=== PATIENT | female | born 1995 | race Caucasian/White ===

== ENCOUNTER → 2017-04-16 | Outpatient (CLI) | payer BC ==
[~2017-04-16] MED LIST: AMOX400S3 PO; AZIT250T PO; BIOT1CAP8 PO; BSP/5 PO; ONDA4TAB10 SL; ONDA4TAB46 PO; PRED20TA PO; PROM1SUP19 PR; PYRI100T4 PO; VITB2100 PO; VNTHFA/IN INH
[2017-04-16 18:41] LABS: URINE APPEARANCE CLEAR (CLEAR); URINE BILIRUBIN NEG (NEG); URINE COLOR YELLOW; URINE NITRITE NEG (NEG); URINE PH 7.5 (4.5-7.5); URINE SPECIFIC GRAVITY 1.014 (1.000-1.030); UROBILINOGEN NEG (NEG)
[2017-04-16 18:58] LABS: MANUAL MICROSCOPIC REQUIRED? NO; REVIEW REQ? NO
[2017-04-19 03:15] LABS: CHLAMYDIA TRACH RNA*** NOT DETECTED (NOT DETECTED); GC (NEIS GONORRHOEAE)RNA** NOT DETECTED (NOT DETECTED)
== END | disposition home or self-care (01) ==
LOC: C.LABSPEC 17:45
PROVIDERS: ATTEND Obstetrics & Gynecology
DX: Z34.01 Encounter for supervision of normal first pregnancy, first trimester (principal)

== ENCOUNTER → 2017-04-17 | Outpatient (CLI) | payer BC ==
[2017-04-17 14:08] LABS: HEMATOCRIT 38.8 % (37-47); MEAN CELL VOLUME 88.8 fL (80-100); MEAN CORPUSCULAR HEMOGLOBIN 30.2 pg (25-34); MEAN PLATELET VOLUME 10.8 fL (7.4-10.4); PLATELET COUNT 191 K/uL (130-400); RED BLOOD COUNT 4.37 M/uL (4.2-5.4); WHITE BLOOD COUNT 9.36 K/uL (4.8-10.8)
[2017-04-17 14:11] LABS: BASO % 0.2 %; BASO ABS # 0.02 K/uL (0-0.2); COMPLETE YES; EOS % 0.9 %; IG% 0.2 %; LYMPH % 19.4 %; LYMPH ABS # 1.82 K/uL (1.2-3.4); MONO % 7.1 %; NEUT % 72.2 %; PLT ESTIMATE NORMAL; TOXIC GRANULATION 1+
== END | disposition home or self-care (01) ==
LOC: C.LAB1850 11:37
PROVIDERS: ATTEND Obstetrics & Gynecology
DX: Z34.01 Encounter for supervision of normal first pregnancy, first trimester (principal)

== ENCOUNTER 2017-05-19 12:21 | Emergency (ER) | payer BC ==
[~2017-05-19] VITALS: Ht 160 cm; Wt 55.8 kg
[~2017-05-19 12:21] MED LIST changes: -BSP/5 PO; -ONDA4TAB10 SL; -ONDA4TAB46 PO; -PROM1SUP19 PR; -PYRI100T4 PO; -VNTHFA/IN INH
[2017-05-19 12:33] VITALS: TEMP 36.8; Ht 160 cm; Wt 55.8 kg
[2017-05-19] MEDS ORDERED: PYRI100T4 PO (12:53)
[2017-05-19] MEDS ORDERED: DiphenhydrAMINE HCL 50 MG/ML VIAL IV STA (13:05)
[2017-05-19] MEDS ORDERED: SODIUM CHLORIDE 0.9% 1000ML 1,000 ML IV ONE (13:15)
[2017-05-19 13:48] LABS: BASO % 0.2 %; BASO ABS # 0.02 K/uL (0-0.2); COMPLETE YES; EOS % 0.5 %; HEMATOCRIT 38.9 % (37-47); IG% 0.2 %; LYMPH % 17.6 %; LYMPH ABS # 1.94 K/uL (1.2-3.4); MEAN CELL VOLUME 89.4 fL (80-100); MEAN CORPUSCULAR HEMOGLOBIN 31.3 pg (25-34); MEAN PLATELET VOLUME 10.1 fL (7.4-10.4); MONO % 4.5 %; PLATELET COUNT 198 K/uL (130-400); RED BLOOD COUNT 4.35 M/uL (4.2-5.4); WHITE BLOOD COUNT 11.04 K/uL (4.8-10.8)
[2017-05-19 13:51] LABS: URINE APPEARANCE TURBID (CLEAR); URINE BILIRUBIN NEG (NEG); URINE COLOR YELLOW; URINE EPITHELIAL CELL AUTO >30 /lpf (0-5); URINE NITRITE NEG (NEG); URINE SPECIFIC GRAVITY 1.021 (1.000-1.030); UROBILINOGEN NEG (NEG)
[2017-05-19 13:55] LABS: MANUAL MICROSCOPIC REQUIRED? NO; REVIEW REQ? NO
[2017-05-19 14:07] LABS: ALT/SGPT 18 U/L (12-78); BLOOD UREA NITROGEN 5 mg/dl (7-18); BUN/CREATININE RATIO 10.4 (10-20); CALCIUM 9.2 mg/dl (8.5-10.1); CARBON DIOXIDE 25 mmol/L (21-32); CHLORIDE 104 mmol/L (98-107); CREATININE 0.51 mg/dl (0.60-1.20); GLUCOSE 72 mg/dl (70-99); POTASSIUM 3.4 mmol/L (3.5-5.1); SODIUM 136 mmol/L (136-145)
[2017-05-19 14:09] LABS: ALKALINE PHOSPHATASE 57 U/L (45-117); AST/SGOT 8 U/L (15-37)
[2017-05-19] MEDS ORDERED: ACETAMINOPHEN IV 650 MG in EMPTY BAG 0 ML IV ONE (14:30)
[2017-05-19] MEDS ORDERED: ONDA4TAB46 PO (15:51)
[2017-05-19 16:15] VITALS: BP 104/51; PULSE 74; O2SAT 100
--- NOTE | 2017-05-20 15:43 | EMERGENCY ROOM VISIT NOTE ---
ED Visit Note First contact with patient: 12:47 Chief Complaint: and having worsening nausea and vomiting. History of Present Illness: Ms. Biggs is a 22-year-old white female who ambulates into the ED accompanied by her mother complaining of nausea and vomiting. Historically she is para 1 0 with an EDC of November 28. She has been having first trimester nausea and vomiting for multiple weeks. She is seen her HAND CEMENTER twice for this condition and she has been placed on vitamin B6 and Unisom and has had no relief of her symptoms. Patient reports her nausea is constant and she has had 6-7 episodes of vomiting per day. This is worsened when she attempts the ED or drink anything. She has not found any relief from her medications. Associated with her nausea and vomiting she reports that she has a global headache. This headache is intermittent. She describes her pain as a throbbing sensation with prominence in the bifrontal area. She does report she has most of her relief when she is not vomiting and it is worsened when she vomits. She has not taken any medications for this discomfort prior to arrival at the hospital. Also she has dizziness when she is vomiting. She denies fevers, chills, sweats, skin eruptions, skin color changes, abnormal neurological symptoms, upper respiratory tract symptoms, sinus congestion, sore throats, neck pain/stiffness, shortness of breath, cough, wheezing, abdominal pain, diarrhea, constipation, bloody vomitus, bloody stools, urinary symptoms, hematuria, vaginal bleeding/discharge. Review of Systems: As noted above in history of present illness. All body systems were reviewed and found to be negative as noted above. Past Medical History: As previously noted, asthma, bronchitis, pneumonia, kidney stones, frequent urinary tract infections. Current Medications: Vitamin B6 and Unisom. Allergies to Medications: Codeine. Social History: Patient is currently employed; she lives with her mother and feels safe in her home environment; she admits to tobacco use and denies alcohol use. Physical Examination: Vital Signs: Test 05/19/17 13:20 05/19/17 13:30 Range/Units White Blood Count 11.04 4.8-10.8 K/uL Red Blood Count 4.35 4.2-5.4 M/uL Hemoglobin 13.6 12.0-16.0 g/dL Hematocrit 38.9 37-47 % Mean Corpuscular Volume 89.4 80-100 fL Mean Corpuscular Hemoglobin 31.3 25-34 pg Mean Corpuscular Hemoglobin Concent 35.0 32-36 g/dl Platelet Count 198 130-400 K/uL Mean Platelet Volume 10.1 7.4-10.4 fL Neutrophils (%) (Auto) 77.0 % Lymphocytes (%) (Auto) 17.6 % Monocytes (%) (Auto) 4.5 % Eosinophils (%) (Auto) 0.5 % Basophils (%) (Auto) 0.2 % Neutrophils # (Auto) 8.51 1.4-6.5 K/uL Lymphocytes # (Auto) 1.94 1.2-3.4 K/uL Monocytes # (Auto) 0.50 0.11-0.59 K/uL Eosinophils # (Auto) 0.05 0-0.5 K/uL Basophils # (Auto) 0.02 0-0.2 K/uL RDW Standard Deviation 40.9 36.4-46.3 fL RDW Coefficient of Variation 12.6 11.5-14.5 % Immature Granulocyte % (Auto) 0.2 % Immature Granulocyte # (Auto) 0.02 0.00-0.02 K/uL Sodium Level 136 136-145 mmol/L Potassium Level 3.4 3.5-5.1 mmol/L Chloride Level 104 98-107 mmol/L Carbon Dioxide Level 25 21-32 mmol/L Anion Gap 7.0 3-11 mmol/L Blood Urea Nitrogen 5 7-18 mg/dl Creatinine 0.51 0.60-1.20 mg/dl Est Creatinine Clear Calc Drug Dose 145.5 ml/min Estimated GFR () > 150.0 Estimated GFR (Non- 138.4 BUN/Creatinine Ratio 10.4 10-20 Random Glucose 72 70-99 mg/dl Calcium Level 9.2 8.5-10.1 mg/dl Total Bilirubin 0.3 0.2-1 mg/dl Direct Bilirubin 0.1 0-0.2 mg/dl Aspartate Amino Transf (AST/SGOT) 8 15-37 U/L Alanine Aminotransferase (ALT/SGPT) 18 12-78 U/L Alkaline Phosphatase 57 45-117 U/L Total Protein 7.7 6.4-8.2 gm/dl Albumin 3.9 3.4-5.0 gm/dl Lipase 98 73-393 U/L Human Chorionic Gonadotropin, Quant 03955 mIU/mL Urine Color YELLOW Urine Appearance TURBID CLEAR Urine pH 8.0 4.5-7.5 Urine Specific [place] 1.021 1.000-1.030 Urine Protein NEG NEG Urine Glucose (UA) NEG NEG Urine Ketones 1+ NEG Urine Occult Blood NEG NEG Urine Nitrite NEG NEG Urine Bilirubin NEG NEG Urine Urobilinogen NEG NEG Urine Leukocyte Esterase NEG NEG Urine WBC (Auto) 1-5 0-5 /hpf Urine RBC (Auto) 0-4 0-4 /hpf Urine Hyaline Casts (Auto) 1-5 0-5 /lpf Urine Epithelial Cells (Auto) >30 0-5 /lpf Urine Bacteria (Auto) NEG NEG GENERAL: 22-year-old female in mild to moderate distress due to symptoms, nontoxic-appearing, afebrile and hemodynamically stable. NEUROLOGICAL: Awake, alert and oriented to person, place and time. Answering questions appropriately and following commands. Normal gait. Good hand eye coordination. SKIN: Warm, dry and pink. No soft tissue eruptions or trauma noted. HEENT: Atraumatic and normocephalic. PERRLA. EOMI without nystagmus. External ears are nontender. Tympanic membranes appear normal without erythema or bulging. No drainage from naris. Oral cavity moist and pink. Airway patent. Pharynx is nonerythematous or edematous. Speech normal. No lymphadenopathy. Trachea midline. No jugular venous distention. BACK: No tenderness over the bony spine. No CVA tenderness. THORAX: Lungs sounds are clear to auscultation and equal bilaterally with symmetrical chest wall. No wheezing, rales or rhonchi. No crepitus, tenderness , subcutaneous air or deformities noted. HEART: Tachycardic rate and rhythm. No gallops, rubs or murmurs are appreciated. ABDOMEN: Soft and nontender. Positive bowel sounds in all quadrants. No guarding, rigidity or organomegaly. EXTREMITIES: Moves all extremities well on command and with purpose. All distal neurovascular statuses are intact and equal bilaterally. ED Course: Patient is assessed as noted above. Patient medication list was reviewed. Patient was hydrated with normal saline and given 25 mg of Benadryl IV for her nausea and 650 mg of acetaminophen IV for her headache. Patient was reassessed multiple times during her stay in the emergency department. Patient's case was reviewed with Dr. Arrieta; we agreed on diagnostic approach, treatment, disposition and plan. Patient's case was consulted with Dr. Delgado, HAND CEMENTER; she recommended ED discharge, office follow-up and had the patient chews from vaginal/rectal Phenergan or ODT Zofran for her symptoms; she accepted Zofran. Patient and mother were educated about today's findings and instructed on her treatment plan; she verbalizes understanding and agreement with this plan. Clinical Impression: Nausea and vomiting during . Disposition: Patient discharged home in stable condition accompanied by her mother; prior to departure she subjectively reported she was feeling better. I did try a her on water and she was able to take sips without return of nausea vomiting but did report the fluids did cause her some abdominal cramping in the upper abdomen. Plan: Patient was encouraged to use 6 mg of Zofran every 4-6 hours as needed for nausea/vomiting and she was encouraged at least over the next 2 days to take it before mealtime. Patient was encouraged to take 3-4 sips of water every hour until she can tolerate additional fluids and after tolerating additional fluids she did try a bland/clear diet. Patient is encouraged use 650 mg of liquid Tylenol every 6 hours as needed for pain. Patient was encouraged to call her HAND CEMENTER office and request follow-up care and treatment. Patient was encouraged return ED for worsening nausea/vomiting, bloody vomitus, fevers or any new/concerning symptoms.
== END 2017-05-19 16:16 | disposition home or self-care (01) ==
LOC: C.EDB 12:23 → C.EDC 16:16
DX: O21.0 Mild hyperemesis gravidarum (principal); Z3A.00 Weeks of gestation of pregnancy not specified; O99.511 Diseases of the respiratory system complicating pregnancy, first trimester; J45.909 Unspecified asthma, uncomplicated; Z87.440 Personal history of urinary (tract) infections; Z87.442 Personal history of urinary calculi; Z72.0 Tobacco use

== ENCOUNTER 2017-05-27 08:47 | Emergency (ER) | payer BC ==
[~2017-05-27] VITALS: Ht 160 cm; Wt 54.9 kg
[~2017-05-27 08:47] MED LIST changes: -AMOX400S3 PO; -AZIT250T PO; -BIOT1CAP8 PO; +ONDA4TAB46 PO; -PRED20TA PO; +PYRI100T4 PO; -VITB2100 PO
[2017-05-27 08:50] VITALS: TEMP 36.8; Ht 160 cm; Wt 54.9 kg
[2017-05-27] MEDS ORDERED: BSP/5 PO (09:14)
[2017-05-27] MEDS ORDERED: VNTHFA/IN INH (09:14)
[2017-05-27] MEDS ORDERED: SODIUM CHLORIDE 0.9% 1000ML 1,000 ML IV STA (09:29)
[2017-05-27] MEDS ORDERED: ONDANSETRON INJ 2 MG/ML 2 ML VIAL IV STA (09:29)
[2017-05-27 10:09] LABS: URINE APPEARANCE CLOUDY (CLEAR); URINE BILIRUBIN NEG (NEG); URINE COLOR YELLOW; URINE EPITHELIAL CELL AUTO >30 /lpf (0-5); URINE NITRITE NEG (NEG); URINE PH 7.5 (4.5-7.5); URINE SPECIFIC GRAVITY 1.018 (1.000-1.030); UROBILINOGEN NEG (NEG); ZZUR CULT IF INDIC CLEAN CATCH NO
[2017-05-27 10:10] LABS: MANUAL MICROSCOPIC REQUIRED? NO; REVIEW REQ? NO
[2017-05-27 10:16] LABS: BASO % 0.2 %; BASO ABS # 0.02 K/uL (0-0.2); COMPLETE YES; EOS % 0.9 %; HEMATOCRIT 38.9 % (37-47); IG% 0.1 %; LYMPH % 15.5 %; LYMPH ABS # 1.41 K/uL (1.2-3.4); MEAN CELL VOLUME 90.9 fL (80-100); MEAN CORPUSCULAR HEMOGLOBIN 29.9 pg (25-34); MEAN CORPUSCULAR HGB CONC 32.9 g/dl (32-36); MEAN PLATELET VOLUME 10.5 fL (7.4-10.4); MONO % 5.1 %; NEUT % 78.2 %; PLATELET COUNT 188 K/uL (130-400); RED BLOOD COUNT 4.28 M/uL (4.2-5.4); WHITE BLOOD COUNT 9.08 K/uL (4.8-10.8)
[2017-05-27 10:26] LABS: PROTHROMBIN TIME (PATIENT) 10.2 SECONDS (9.0-12.0)
[2017-05-27 10:35] LABS: ALT/SGPT 13 U/L (12-78); BLOOD UREA NITROGEN 6 mg/dl (7-18); BUN/CREATININE RATIO 12.4 (10-20); CALCIUM 9.1 mg/dl (8.5-10.1); CARBON DIOXIDE 24 mmol/L (21-32); CHLORIDE 105 mmol/L (98-107); GLUCOSE 76 mg/dl (70-99); POTASSIUM 3.7 mmol/L (3.5-5.1); SODIUM 137 mmol/L (136-145)
[2017-05-27 10:37] LABS: ALKALINE PHOSPHATASE 46 U/L (45-117); AST/SGOT 8 U/L (15-37)
--- NOTE | 2017-05-27 10:56 | DIAGNOSTIC IMAGING REPORT ---
LIMITED (US) CLINICAL HISTORY: 22 years-old Female presenting with VAG SPOTTING, N/V. TECHNIQUE: Real-time grayscale and color Doppler ultrasound imaging of the pelvis was performed using a transabdominal probe. COMPARISON: None. FINDINGS: Uterus: Single live intrauterine . [place]-rump length measures 7.4 cm corresponding to an estimated gestational age of 13 weeks 4 days and an estimated date of delivery 11/28/2017. heart rate 160 beats per minute. Anterior placental implantation. No evidence of placenta previa. Normal amniotic fluid volume. No perigestational fluid to suggest hemorrhage. Cervix long and closed, measuring 4.4 cm. Right adnexa: Right ovary contains a corpus luteum. Right ovary measures 1.9 x 1.9 x 1.4 cm. Normal color Doppler flow within the ovarian parenchyma. Left adnexa: Left ovary normal. Left ovary measures 1.1 x 2.3 x 1.7 cm. Normal color Doppler flow within the ovarian parenchyma. Other: No free fluid. IMPRESSION: Single live intrauterine with an estimated gestational age of 13 weeks 4 days and estimated date of delivery 11/28/2017. No sonographic evidence of a perigestational hemorrhage. Electronically signed by: Reymundo Jay M.D. 05/27/2017 10:54 AM Dictated Date/Time: 05/27/2017 10:51 AM
[2017-05-27] MEDS ORDERED: ONDA4TAB10 SL (11:45)
[2017-05-27] MEDS ORDERED: PROM1SUP19 PR (11:45)
[2017-05-27 12:00] VITALS: BP 106/54; PULSE 70; O2SAT 99
--- NOTE | 2017-05-27 15:27 | EMERGENCY ROOM VISIT NOTE ---
History First contact with patient: 08:58 Chief Complaint: VOMITING Stated Complaint: DIZZY, VOMITING-13 1/2 WKS. Nursing Triage Summary: Pt mother states pt has spotted a couple times in the last two weeks, including yesterday, she's 13 "she's really dizzy and she can't keep anything down". Pt states no spotting today, but spotting yesterday was worse than before. Taking Buspar x 1 week. Nausea since beginning of . Pt associates back pain History of Present Illness The patient is a 22 year old female who presents to the Emergency Room with complaints of nausea, vomiting, dehydration and intermittent vaginal spotting. The patient reports that she is currently approximately 13.5 weeks . She has had the symptoms since early in . Her first ultrasound at 7 weeks was normal. She reports that her COUNTY TAX ASSESSOR was not concerned about her spotting. The patient reports that she was here recently with her symptoms, and provided a prescription for Zofran tablets. She has been unable to swallow the pills to control her nausea. She denies any diarrhea or urinary symptoms. She has had generalized abdominal cramping radiating into the lower back. The mother reports that her blood pressure also seems to be lower as well. The patient was provided a prescription for BuSpar one week ago, and is wondering if the BuSpar is causing her symptoms. This is the patient's first . She rates her overall discomfort a 5 out of 10. Review of Systems HEENT: Denies dizziness, visual problems, hearing loss, tinnitus. Denies difficulty swallowing or oral lesions. PULMONARY: Denies cough, shortness of breath, sputum production or hemoptysis. CARDIOVASCULAR: Denies chest pain, palpitations, dyspnea on exertion, orthopnea or peripheral edema. GASTROINTESTINAL: Denies diarrhea or constipation, otherwise see history of present illness. GENITOURINARY: Denies dysuria, frequency, urgency or nocturia. NEUROLOGIC: Denies history of epilepsy, CVA, TIA or chronic headaches. MUSCULOSKELETAL: Denies history of joint tenderness/swelling. SKIN: Denies rashes or lesions. PSYCHIATRIC: Denies history of depression or mental illness. ENDOCRINE: Denies history of diabetes or thyroid disorders. Past Medical/Surgical History Medical Problems: (1) Asthma (2) Calculus Of Kidney (3) Pneumonia (4) Tobacco Use Disorder Surgical Problems: (1) No history of previous surgery Family History FH: gallbladder disease Social History Smoking Status: Current Every Day Smoker Alcohol Use: none Marital Status: single Housing Status: lives with family Occupation Status: employed Current/Historical Medications Scheduled Buspirone HCl (Buspirone HCl), 5 MG PO BID Ondasetron Odt (Zofran Odt), 4 MG SL Q6H Pyridoxine (Vitamin B6), 50 MG PO DAILY Scheduled PRN Albuterol Hfa (Ventolin Hfa), 2-4 PUFFS INH Q6H PRN for Shortness of Breath Ondansetron Hcl (Zofran), 4 MG PO Q6H PRN for Nausea Promethazine (Phenergan Suppository), 25 MG ID Q4-6h PRN for Nausea Physical Exam Vital Signs Date Time Temp Pulse Resp B/P (MAP) Pulse Ox O2 Delivery O2 Flow Rate FiO2 05/27/17 12:00 70 18 106/54 99 05/27/17 10:53 75 16 105/50 100 Room Air 05/27/17 08:50 36.8 81 16 102/66 100 Room Air Physical Exam CONSTITUTIONAL: Healthy and well nourished. Alert and oriented X 3 with positive affect. Patient appears in moderate discomfort from nausea. HEENT: Normocephalic, atraumatic. Pupils equal, round and reactive. Ears and nares are clear. No scleral icterus or conjunctival injection. OROPHARYNX: Mucous membranes are dry. No tonsillar hypertrophy or exudates noted. NECK: Full active range of motion without discomfort. RESPIRATORY: Clear to auscultation bilaterally with no wheezing, crackles, rhonchi or stridor. CARDIOVASCULAR: Regular rate and rhythm with no murmurs, rubs or gallops. GASTROINTESTINAL: Bowel sounds present in all quadrants. Patient has generalized abdominal tenderness to palpation without rigidity, guarding or rebound. The fundus is barely palpable. Negative CVA tenderness. MUSCULOSKELETAL: Full range of motion of all joints without discomfort. INTEGUMENTARY: No rash or other significant dermatologic conditions noted. HEMATOLOGIC: No ecchymosis or petechiae. NEUROLOGIC: No focal neurologic deficits noted. Medical Decision & Procedures ER Provider Diagnostic Interpretation: ultrasound was normal. Radiologist report is as follows: LIMITED (US) CLINICAL HISTORY: 22 years-old Female presenting with VAG SPOTTING, N/V. TECHNIQUE: Real-time grayscale and color Doppler ultrasound imaging of the pelvis was performed using a transabdominal probe. COMPARISON: None. FINDINGS: Uterus: Single live intrauterine . [place]-rump length measures 7.4 cm corresponding to an estimated gestational age of 13 weeks 4 days and an estimated date of delivery 11/28/2017. heart rate 160 beats per minute. Anterior placental implantation. No evidence of placenta previa. Normal amniotic fluid volume. No perigestational fluid to suggest hemorrhage. Cervix long and closed, measuring 4.4 cm. Right adnexa: Right ovary contains a corpus luteum. Right ovary measures 1.9 x 1.9 x 1.4 cm. Normal color Doppler flow within the ovarian parenchyma. Left adnexa: Left ovary normal. Left ovary measures 1.1 x 2.3 x 1.7 cm. Normal color Doppler flow within the ovarian parenchyma. Other: No free fluid. IMPRESSION: Single live intrauterine with an estimated gestational age of 13 weeks 4 days and estimated date of delivery 11/28/2017. No sonographic evidence of a perigestational hemorrhage. Laboratory Results 05/27/17 09:45 Red Blood Count 4.28, Mean Corpuscular Volume 90.9, Mean Corpuscular Hemoglobin 29.9, Mean Corpuscular Hemoglobin Concent 32.9, Mean Platelet Volume 10.5, Neutrophils (%) (Auto) 78.2, Lymphocytes (%) (Auto) 15.5, Monocytes (%) (Auto) 5.1, Eosinophils (%) (Auto) 0.9, Basophils (%) (Auto) 0.2, Neutrophils # (Auto) 7.10, Lymphocytes # (Auto) 1.41, Monocytes # (Auto) 0.46, Eosinophils # (Auto) 0.08, Basophils # (Auto) 0.02 05/27/17 09:45 Test 05/27/17 09:45 White Blood Count 9.08 K/uL (4.8-10.8) Red Blood Count 4.28 M/uL (4.2-5.4) Hemoglobin 12.8 g/dL (12.0-16.0) Hematocrit 38.9 % (37-47) Mean Corpuscular Volume 90.9 fL (80-100) Mean Corpuscular Hemoglobin 29.9 pg (25-34) Mean Corpuscular Hemoglobin Concent 32.9 g/dl (32-36) Platelet Count 188 K/uL (130-400) Mean Platelet Volume 10.5 fL (7.4-10.4) Neutrophils (%) (Auto) 78.2 % Lymphocytes (%) (Auto) 15.5 % Monocytes (%) (Auto) 5.1 % Eosinophils (%) (Auto) 0.9 % Basophils (%) (Auto) 0.2 % Neutrophils # (Auto) 7.10 K/uL (1.4-6.5) Lymphocytes # (Auto) 1.41 K/uL (1.2-3.4) Monocytes # (Auto) 0.46 K/uL (0.11-0.59) Eosinophils # (Auto) 0.08 K/uL (0-0.5) Basophils # (Auto) 0.02 K/uL (0-0.2) RDW Standard Deviation 42.1 fL (36.4-46.3) RDW Coefficient of Variation 12.7 % (11.5-14.5) Immature Granulocyte % (Auto) 0.1 % Immature Granulocyte # (Auto) 0.01 K/uL (0.00-0.02) Prothrombin Time 10.2 SECONDS (9.0-12.0) Prothromb Time International Ratio 1.0 (0.9-1.1) Activated Partial Thromboplast Time 26.8 SECONDS (21.0-31.0) Partial Thromboplastin Ratio 1.0 Urine Color YELLOW Urine Appearance CLOUDY (CLEAR) Urine pH 7.5 (4.5-7.5) Urine Specific [place] 1.018 (1.000-1.030) Urine Protein NEG (NEG) Urine Glucose (UA) NEG (NEG) Urine Ketones 1+ (NEG) Urine Occult Blood NEG (NEG) Urine Nitrite NEG (NEG) Urine Bilirubin NEG (NEG) Urine Urobilinogen NEG (NEG) Urine Leukocyte Esterase SMALL (NEG) Urine WBC (Auto) 1-5 /hpf (0-5) Urine RBC (Auto) 0-4 /hpf (0-4) Urine Hyaline Casts (Auto) 0 /lpf (0-5) Urine Epithelial Cells (Auto) >30 /lpf (0-5) Urine Bacteria (Auto) NEG (NEG) Anion Gap 8.0 mmol/L (3-11) Est Creatinine Clear Calc Drug Dose 148.4 ml/min Estimated GFR () > 150.0 Estimated GFR (Non- 139.3 BUN/Creatinine Ratio 12.4 (10-20) Calcium Level 9.1 mg/dl (8.5-10.1) Total Bilirubin 0.3 mg/dl (0.2-1) Direct Bilirubin < 0.1 mg/dl (0-0.2) Aspartate Amino Transf (AST/SGOT) 8 U/L (15-37) Alanine Aminotransferase (ALT/SGPT) 13 U/L (12-78) Alkaline Phosphatase 46 U/L (45-117) Total Protein 6.6 gm/dl (6.4-8.2) Albumin 3.3 gm/dl (3.4-5.0) Human Chorionic Gonadotropin, Quant 94142 mIU/mL The above labs were reviewed. Quantitative beta-hCG is noted above. Remaining labs were otherwise normal. Urinalysis is not suggestive of infection. Medications Administered Medications (Trade) Dose Ordered Sig/Kelly Route Start Time Stop Time Status Last Admin Dose Admin Sodium Chloride 1,000 ml @ 999 mls/hr Q1H1M STAT IV 05/27/17 09:29 05/27/17 10:29 DC 05/27/17 09:54 999 MLS/HR Ondansetron HCl (Zofran Inj) 4 mg NOW STAT IV 05/27/17 09:29 05/27/17 09:32 DC 05/27/17 09:54 4 MG Procedure 1. IV hydration: The patient received a liter normal saline bolus 2. IV medications: Zofran 4 mg IVP ED Course Patient history and physical exam were performed. Nurse's notes were reviewed. Vital signs were reviewed and were normal. I also reviewed documentation from the patient's most recent emergency department visit. It is noted that the patient was offered Phenergan suppositories, but elected Zofran for the nausea. It is noted that the patient was not prescribed Zofran ODT, and the patient reports that she is unable to keep the Zofran pills down to prevent her nausea. IV access was established and labs were drawn. The patient was hydrated with normal saline, and administered IV Zofran. Labs were reviewed without any significant changes. Urinalysis is unremarkable. Quantitative beta hCG is consistent with the patient's current gestational age. ultrasound was also performed and normal. The patient did report improvement of her symptoms with IV hydration and Zofran. The patient is requesting a prescription for Zofran ODT. This was provided, along with a written prescription for Phenergan suppositories should the Zofran not work. I did suggest that she follow-up with her COUNTY TAX ASSESSOR for recheck in the next 48 hours. Although I feel that her vaginal spotting is normal, she may need a repeat quantitative beta hCG and reevaluation by her OB/ MANAGER BODY. She was instructed to return to the emergency department for any significantly worsening symptoms. The patient was happy with plan of care, voiced understanding of all discharge instructions, and denied any significant symptoms at the time of discharge. Medical Decision Medication Reconcilliation Current Medication List: was personally reviewed by me Blood Pressure Screening Patient's blood pressure: Normal blood pressure Impression Primary Impression: Vaginal bleeding in patient at less than 20 weeks gestation Additional Impressions: Nausea and vomiting during Dehydration during Departure Information Prescriptions Promethazine (Phenergan Suppository) 25 Mg Supp 25 MG ID Q4-6h Y for Nausea, #10 SUPP Prov: Adriano Blandon PA 05/27/17 Ondasetron Odt (ZOFRAN ODT) 4 Mg Tab 4 MG SL Q6H for Nausea, #30 TAB Prov: Adriano Blandon PA 05/27/17 Referrals Jason Engel M.D. (PCP) Patient Instructions My [facility] Problem Qualifiers
== END 2017-05-27 11:56 | disposition home or self-care (01) ==
LOC: C.EDB 08:48
DX: O26.851 Spotting complicating pregnancy, first trimester (principal); O21.0 Mild hyperemesis gravidarum; O99.281 Endocrine, nutritional and metabolic diseases complicating pregnancy, first trimester; E86.0 Dehydration; O99.511 Diseases of the respiratory system complicating pregnancy, first trimester; J45.909 Unspecified asthma, uncomplicated; O99.331 Smoking (tobacco) complicating pregnancy, first trimester; F17.200 Nicotine dependence, unspecified, uncomplicated; Z3A.13 13 weeks gestation of pregnancy; Z87.442 Personal history of urinary calculi; Z87.01 Personal history of pneumonia (recurrent)

== ENCOUNTER → 2017-06-11 | Outpatient (CLI) | payer BC ==
[~2017-06-11] MED LIST changes: +BSP/5 PO; +ONDA4TAB10 SL; +PROM1SUP19 PR; +VNTHFA/IN INH
[2017-06-11 18:05] LABS: GTGD 50 Grams
== END ==
LOC: C.LAB1850 14:36
PROVIDERS: ATTEND Obstetrics & Gynecology
DX: Z34.02 Encounter for supervision of normal first pregnancy, second trimester (principal)

== ENCOUNTER → 2017-09-09 | Outpatient (CLI) | payer BC, OTHER ==
[~2017-09-09] MED LIST changes: +PREN-63; +PRENTAB26 PO
[2017-09-09 16:32] LABS: HEMATOCRIT 31.6 % (37-47); HEMOGLOBIN 10.7 g/dL (12.0-16.0)
== END | disposition home or self-care (01) ==
LOC: C.LAB1850 14:39
PROVIDERS: ATTEND Obstetrics & Gynecology
DX: Z34.03 Encounter for supervision of normal first pregnancy, third trimester (principal)

== ENCOUNTER 2017-10-01 11:15 | Outpatient (CLI) | payer BC ==
[~2017-10-01] VITALS: Ht 160 cm; Wt 63.0 kg
[~2017-10-01 11:15] MED LIST changes: -PREN-63; -PRENTAB26 PO
[2017-10-01] MEDS ORDERED: PREN-63 (11:59)
[2017-10-01 12:01] VITALS: Ht 160 cm; Wt 63.0 kg
[2017-10-01] MEDS ORDERED: PRENTAB26 PO (13:22)
== END 2017-10-01 12:20 | disposition home or self-care (01) ==
LOC: C.OPB 11:15 → C.LD 11:15 → C.OPB 12:20
PROVIDERS: ATTEND Obstetrics & Gynecology
DX: O99.89 Other specified diseases and conditions complicating pregnancy, childbirth and the puerperium (principal); M54.9 Dorsalgia, unspecified; O99.333 Smoking (tobacco) complicating pregnancy, third trimester; F17.210 Nicotine dependence, cigarettes, uncomplicated; Z3A.31 31 weeks gestation of pregnancy

== ENCOUNTER 2017-10-01 12:31 | Emergency (ER) | payer BC, OTHER ==
[~2017-10-01] VITALS: Ht 160 cm; Wt 61.0 kg
[~2017-10-01 12:31] MED LIST changes: +PREN-63
[2017-10-01 12:34] VITALS: TEMP 36.6; Ht 160 cm; Wt 61.0 kg
[2017-10-01] MEDS ORDERED: PRENTAB26 PO (13:22)
[2017-10-01 15:16] VITALS: BP 106/54; PULSE 81; O2SAT 99
--- NOTE | 2017-10-01 17:32 | EMERGENCY ROOM VISIT NOTE ---
History Report prepared by Marko: Rupa Delaney Under the Supervision of: Dr. Leo Casey M.D. First contact with patient: 13:35 Chief Complaint: BACK PAIN Stated Complaint: SEVERE BACK PAIN, 31 WEEKS History of Present Illness The patient is a 22 year old female who presents to the Emergency Room with complaints of persistent back pain starting yesterday. The pain is in her mid and lower back on both sides. The patient was observed in L&D and sent to the ED. She is 32 weeks . She denies any trauma to her back. She has been taking Tylenol to no significant relief. She denies any vaginal bleeding or discharge. She denies any difficulty urinating, incontinence, or hematuria. Source of History: patient Onset: yesterday Position: back (mid to lower) Quality: other (pain) Timing: other (persistent) Associated Symptoms: + fevers (resolved), + nausea (resolved), + vomiting ( resolved), + numbness (in fingers), No urinary symptoms Note: Pt denies vaginal bleeding/discharge. Review of Systems See HPI for pertinent positives and negatives. A total of ten systems were reviewed and were otherwise negative. Past Medical & Surgical Medical Problems: (1) 30 weeks gestation of (2) Asthma (3) Back pain affecting in third trimester (4) Calculus Of Kidney (5) Pneumonia (6) Tobacco Use Disorder Surgical Problems: (1) No history of previous surgery Family History FH: gallbladder disease Social History Smoking Status: Current Every Day Smoker Alcohol Use: none Marital Status: single Housing Status: lives with family Occupation Status: employed Current/Historical Medications Scheduled Multivit/Min/Iron/Fol Ac/Pren ( Vitamin), 1 TAB PO DAILY Scheduled PRN Ondansetron Hcl (Zofran), 4 MG PO Q6H PRN for Nausea Allergies Coded Allergies: Codeine (Unverified Allergy, Severe, DELIRIUM, 10/01/17) Pt. states that she has hallucinations with codeine. Physical Exam Vital Signs Date Time Temp Pulse Resp B/P (MAP) Pulse Ox O2 Delivery O2 Flow Rate FiO2 10/01/17 15:16 81 20 106/54 99 10/01/17 14:31 81 16 113/59 100 Room Air 10/01/17 12:34 36.6 116 18 112/74 100 Room Air Physical Exam Physical Exam GENERAL: She is oriented to person, place, and time. She appears well- developed and well-nourished. She does not appear distressed. ____ HENT: Exam performed. Head: Normocephalic and atraumatic. Right Ear: External ear normal. No mastoid tenderness. Left Ear: External ear normal. No mastoid tenderness. Mouth/Throat: The oropharynx is clear and moist. No trismus in the jaw. No dental abscesses or uvula swelling. No oropharyngeal exudate or tonsillar abscesses. ____ EYES: Conjunctivae and EOM are normal. Pupils are equal, round, and reactive to light. Right eye exhibits no discharge. Left eye exhibits no discharge. No scleral icterus. ____ NECK: Normal range of motion. Neck supple. No JVD present. No spinous process tenderness present. No carotid bruit present. No rigidity. No tracheal deviation and normal range of motion present. No Brudzinski's sign and no Kernig 's sign noted. ____ CV: Normal rate, regular rhythm, normal heart sounds and intact distal pulses. There is no peripheral edema. Palpable radial pulses bue. ____ PULM/CHEST: Effort normal and breath sounds normal. No respiratory distress. No stridor. She has no wheezes. She has no rales. Chest Wall: She exhibits no tenderness. ____ ABD: The abdomen is gravid and soft. Bowel sounds are normal. She has no distension. No mass is present. There is no tenderness. There is no rebound, no guarding, no Ramirez's sign and no tenderness at McBurney's point. Rovsig negative MUSC/SKEL: Normal range of motion. There is no peripheral edema, tenderness or deformity. Pain on palpation of the lumbar paraspinal area bilaterally. No CVA tenderness. No C, T, or L spine tenderness. LYMPH: No cervical adenopathy. ____ NEURO: She is alert and oriented to person, place, and time. She has normal strength. No cranial nerve deficit or sensory deficit. Coordination and gait normal. GCS eye subscore is 4. GCS verbal subscore is 5. GCS motor subscore is 6. cerbellar tests wnl. No saddle anesthesia or paresthesias. SKIN: Skin is warm and dry. She is not diaphoretic. ____ PSYCH: She has a normal mood and affect. Her behavior is normal. Judgment and thought content normal. ____ Medical Decision & Procedures Laboratory Results Test 10/01/17 14:25 Urine Color DK YELLOW Urine Appearance CLEAR (CLEAR) Urine pH 6.5 (4.5-7.5) Urine Specific [place] 1.022 (1.000-1.030) Urine Protein NEG (NEG) Urine Glucose (UA) NEG (NEG) Urine Ketones NEG (NEG) Urine Occult Blood NEG (NEG) Urine Nitrite NEG (NEG) Urine Bilirubin NEG (NEG) Urine Urobilinogen POS (NEG) Urine Leukocyte Esterase SMALL (NEG) Urine WBC (Auto) 5-10 /hpf (0-5) Urine RBC (Auto) 0-4 /hpf (0-4) Urine Hyaline Casts (Auto) 1-5 /lpf (0-5) Urine Epithelial Cells (Auto) >30 /lpf (0-5) Urine Bacteria (Auto) 1+ (NEG) Laboratory results reviewed by sd ED Course 1404: The patient was evaluated in room B12B. A complete history and physical exam was performed. 1414: I discussed the patient's case with Dr. White, [facility] Senior Stereo Compiler Team Lead. She examined the patient earlier today and did tocometry and checked urine for protein and sugar. She found there was no obstetric emergency and the IUP was doing fine on tocometric monitor. From her standpoint, there is no obstetric problem. 1451: DISCHARGE - Plan of care discussed with patient and questions answered. The patient was given both verbal and printed discharge instructions. The patient verbalized understanding and ability to comply. The patient is to seek outpatient follow up as noted in the discharge instructions. The patient verbalized understanding and ability to comply. The patient is discharged in stable condition. The patient was instructed to return for worsening symptoms. Medical Decision I discussed the patient's case with Dr. White, [facility] Senior Stereo Compiler Team Lead. She examined the patient earlier today and did tocometry and checked urine for protein and sugar. She found there was no obstetric emergency and the IUP was doing fine on tocometric monitor. From her standpoint, there is no obstetric problem. Patient 's history and physical are not concerning for cord compression or acute fracture, discussed this with the patient and giving that she is she and I both agree that we should limit the amount of radiation to the baby. No imaging is warranted at this time the patient agrees she does not want any imaging. Urine reported negative. Discussed with the patient that she should refrain from taking any sort of NSAID or narcotic medications for potential side effects to her and the baby. She agreed. Patient states she'll take Tylenol. ADDENDUM 2056: Urine showed 1+ bacteria. Given that the patient is , she should be treated for asymptomatic bacteriuria. Call the patient on the cell phone listed in the medical record [phone]. Patient states she is feeling better after doing stretches that were instructed to her. She also states using a heating pad was helping her pain. She'll be called in prescription for Keflex to the [facility] in [facility] . Patient states she'll shrimp picker the prescription tonight or tomorrow. She thanked me for calling her with the updated results. Medication Reconcilliation Current Medication List: was personally reviewed by me Blood Pressure Screening Patient's blood pressure: Normal blood pressure Blood pressure disposition: Did not require urgent referral Consults Time Called: 1405 Consulting Physician: Dr. White, [facility] Senior Stereo Compiler Team Lead Returned Call: [phone] I discussed the patient's case with her. She examined the patient earlier today and did tocometry and checked urine for protein and sugar. She found there was no obstetric emergency and the IUP was doing fine on tocometric monitor. From her standpoint, there is no obstetric problem. Impression Primary Impression: Back pain, lumbosacral Scribe Attestation The scribe's documentation has been prepared under my direction and personally reviewed by me in its entirety. I confirm that the note above accurately reflects all work, treatment, procedures, and medical decision making performed by me. The chart was completed utilizing [employer] Speech voice recognition software. Grammatical errors, random word insertions, pronoun errors, and incomplete sentences are an occasional consequence of this system due to software limitations, ambient noise, and hardware issues. Any formal questions or concerns about the content, text, or information contained within the body of this dictation should be directly addressed to the physician for clarification. Departure Information Dispostion Home / Self-Care Referrals Macnamara, Vicky M., PA-C Forms HOME CARE DOCUMENTATION FORM, IMPORTANT VISIT INFORMATION Patient Instructions Back Pain - [facility], ED Low Back Pain Injury, My [facility], Preg Back Pain Exercise Additional Instructions return to the ED if you develop fever >100.4, urinary incontinence, inability to urinate, blood in your urine, numbness between her thighs, or your symptoms worsen do not improve. Take Tylenol as needed for the back pain. Avoid taking NSAIDs such as Motrin. Apply icy hot and BenGay as needed to the area Follow-up with her SALES APPRENTICE doctor in 1-7 days
== END 2017-10-01 15:15 | disposition home or self-care (01) ==
LOC: C.EDB 12:32
DX: O99.89 Other specified diseases and conditions complicating pregnancy, childbirth and the puerperium (principal); M54.9 Dorsalgia, unspecified; Z3A.32 32 weeks gestation of pregnancy; Z87.442 Personal history of urinary calculi; Z87.01 Personal history of pneumonia (recurrent); F17.210 Nicotine dependence, cigarettes, uncomplicated

== ENCOUNTER → 2017-10-31 | Outpatient (CLI) | payer BC, OTHER ==
[~2017-10-31] MED LIST changes: -BSP/5 PO; -ONDA4TAB10 SL; -PREN-63; +PRENTAB26 PO; -PROM1SUP19 PR; -PYRI100T4 PO; -VNTHFA/IN INH
== END | disposition home or self-care (01) ==
LOC: C.LABSPEC 17:26
PROVIDERS: ATTEND Obstetrics & Gynecology
DX: Z34.03 Encounter for supervision of normal first pregnancy, third trimester (principal); Z3A.00 Weeks of gestation of pregnancy not specified

== ENCOUNTER 2017-11-20 01:23 | Inpatient (IN) | payer BC, OTHER ==
[~2017-11-20] VITALS: Ht 160 cm; Wt 66.8 kg
[~2017-11-20 01:23] MED LIST changes: -ONDA4TAB46 PO
[2017-11-20] MEDS ORDERED: LACTATED RINGER'S 1000ML 1,000 ML IV SCH (02:03)
[2017-11-20] MEDS ORDERED: LACTATED RINGER'S 1000ML 1,000 ML IV PRN (02:03)
[2017-11-20] MEDS ORDERED: LACTATED RINGER'S 1000ML 500 ML IV PRN ×2 (02:21→06:40)
[2017-11-20] MEDS ORDERED: OXYTOCIN 30 UNITS/500ML NSS IV PRN ×2 (02:30→09:45)
[2017-11-20 02:38] VITALS: Ht 160 cm; Wt 66.8 kg
[2017-11-20 03:04] LABS: HEMATOCRIT 29.2 % (37-47); HEMOGLOBIN 9.5 g/dL (12.0-16.0); MEAN CELL VOLUME 90.1 fL (80-100); MEAN CORPUSCULAR HEMOGLOBIN 29.3 pg (25-34); MEAN CORPUSCULAR HGB CONC 32.5 g/dl (32-36); MEAN PLATELET VOLUME 9.5 fL (7.4-10.4); PLATELET COUNT 226 K/uL (130-400); RED CELL DISTRIBUTION WIDTH CV 12.1 % (11.5-14.5); RED CELL DISTRIBUTION WIDTH SD 39.9 fL (36.4-46.3); WHITE BLOOD COUNT 13.54 K/uL (4.8-10.8)
[2017-11-20] MEDS ORDERED: BUTORPHANOL TARTRATE 1 MG/ML VIAL IV ONE (04:45)
[2017-11-20] MEDS ORDERED: NURSING VERBAL MED ORDER ONE (04:45)
[2017-11-20] MEDS ORDERED: BUTORPHANOL TARTRATE 1 MG/ML VIAL ONE (04:48)
[2017-11-20] MEDS ORDERED: BUPIVACAINE 0.25% 30 ML VIAL ONE (05:07)
[2017-11-20] MEDS ORDERED: FENTANYL CITRATE INJ 50 MCG/1 ML 2 ML VIAL ONE (05:08)
[2017-11-20] MEDS ORDERED: EpHEDrine SULFATE INJ 50 MG/ML AMP ONE (05:08)
[2017-11-20] MEDS ORDERED: FENTANYL 2MCG/ML ROPIV 1.25MG/ML 100ML BAG EPI ONE (05:09)
[2017-11-20] MEDS ORDERED: NALOXONE HCL INJ 1 MG in SODIUM CHLORIDE 0.9% 1000ML 1,000 ML IV PRN (06:40)
[2017-11-20] MEDS ORDERED: NALBUPHINE HCL INJ 10 MG/ML AMP IV PRN (06:45)
[2017-11-20] MEDS ORDERED: ONDANSETRON INJ 2 MG/ML 2 ML VIAL IV PRN (06:45)
[2017-11-20] MEDS ORDERED: NALOXONE HCL INJ 0.4 MG/1 ML VIAL/CARP IV PRN (06:45)
[2017-11-20] MEDS ORDERED: DiphenhydrAMINE HCL 50 MG/ML VIAL IV PRN (06:45)
[2017-11-20] MEDS ORDERED: EpHEDrine SULFATE INJ 50 MG/ML AMP IV PRN (06:45)
[2017-11-20] MEDS ORDERED: FENTANYL 2MCG/ML ROPIV 1.25MG/ML 100ML BAG EPI PRN (06:45)
[2017-11-20] MEDS ORDERED: BENZOCAINE 20% AER SPR 82.5 GM CAN EXT PRN (09:45)
[2017-11-20] MEDS ORDERED: ACETAMINOPHEN 325 MG TAB PO PRN (09:45)
[2017-11-20] MEDS ORDERED: SUPERCREAM 0.870 % 15GM JAR EXT PRN (09:45)
[2017-11-20] MEDS ORDERED: LANOLIN OINT EXT PRN (09:45)
[2017-11-20] MEDS ORDERED: HYDROCORTISONE ACETATE 25 MG SUPP PR PRN (09:45)
[2017-11-20] MEDS ORDERED: OXYCODONE/ACETAMINOPHEN 5-325 TAB PO PRN (09:45)
[2017-11-20] MEDS ORDERED: DIPHTHERIA/TETANUS/PERTUSSIS 0.5 ML SYR/VIAL IM. ONE (09:45)
--- NOTE | 2017-11-20 11:41 | Anesthesia Procedure Note ---
Anesthesia Epidural Removal Nt Date & Time Nov 20, 2017 at 11:41 Vital Signs Pain Intensity: 5.0 Notes Mental Status: alert / awake / arousable, participated in evaluation Nausea / Vomiting: adequately controlled Pain: adequately controlled Airway Patency, RR, SpO2: stable & adequate BP & HR: stable & adequate Hydration State: stable & adequate Neuraxial Anesthesia: was administered Anesthetic Complications: no major complications apparent, pt satisfied with anesthetic care Epidural: removed without complications, with tip intact
[2017-11-20 12:15] VITALS: BP 122/61; PULSE 81; TEMP 36.3; O2SAT 100
[2017-11-20] MEDS: IBUPROFEN 600 MG TAB PO PRN ×3 (12:29→20:23)
[2017-11-20 16:10] VITALS: BP 122/75; PULSE 75; TEMP 36.6; O2SAT 100
[2017-11-20 19:40] VITALS: BP 110/69; PULSE 78; TEMP 36.8; O2SAT 99
--- NOTE | 2017-11-20 20:01 | DELIVERY SUMMARY ---
DATE OF OPERATION: 11/20/2017 PREOPERATIVE DIAGNOSES: 1. Intrauterine at 30 and 6/7th weeks. 2. Spontaneous rupture of membranes. POSTOPERATIVE DIAGNOSES: 1. Same. 2. Same. PROCEDURES: 1. Epidural anesthesia. 2. Pitocin augmentation. 3. Normal spontaneous vaginal delivery. 4. Second degree perineal laceration with repair. SURGEON: Dr. Delgado. ANESTHESIA: Epidural. ESTIMATED BLOOD LOSS: 350 mL. DESCRIPTION OF PROCEDURE: The patient presented to labor and delivery and was found to be grossly ruptured at approximately 0020. On the morning of delivery, she was GBS negative, she was 3/90 on presentation. She was admitted and expectantly managed and then Pitocin augmentation was initiated. The patient progressed on Pitocin and labored down for about 30 minutes and then pushed effectively to deliver a viable female infant in THUAN presentation. The nose and mouth were bulb suctioned on the perineum. There was no nuchal cord. The rest of the was then delivered easily. The nose and mouth were again bulb suctioned. The was placed on the maternal abdomen for drying and attention. The cord was clamped and cut at 1.5 minutes of life. Cord blood was obtained. The placenta was delivered spontaneous intact with a 3-vessel cord. Cervix, sulci and rectum were examined and found to be intact. Second degree perineal laceration repaired with 3-0 Vicryl in the normal standard fashion. Hemostasis was obtained with diluted Pitocin and fundal massage. Estimated blood loss 350 mL. Mother and baby doing well at the end of the delivery. I attest to the content of the Intraoperative Record and any orders documented therein. Any exceptions are noted below. MTDGerson
[2017-11-20] MEDS: DOCUSATE SODIUM 100 MG CAP PO SCH (20:22)
[2017-11-20 23:15] VITALS: BP 96/56; PULSE 76; TEMP 36.4; O2SAT 98
[2017-11-21] MEDS: IBUPROFEN 600 MG TAB PO PRN ×5 (02:09→20:40)
[2017-11-21 03:30] VITALS: BP 96/55; PULSE 77; TEMP 36.4; O2SAT 98
--- NOTE | 2017-11-21 06:54 | Progress Note ---
Subjective Nov 21, 2017. Subjective conversation w/ patient, physical exam Ambulation: ambulating normally Voiding: no voiding problems Passing Gas: Yes Diet Tolerance: Regular Diet Lochia: Small Feeding Type: Breast Feeding Pain: lower back pain, controlled with meds and heat Review of Systems Constitutional: No fever, No chills Respiratory: No cough, No shortness of breath Cardiac: No chest pain, No edema Abdomen: No pain, No nausea, No vomiting no headache or calf pain reported Objective Vital Signs Date Time Temp Pulse Resp B/P (MAP) Pulse Ox O2 Delivery O2 Flow Rate FiO2 11/21/17 03:30 36.4 77 16 96/55 (69) 98 Room Air 11/20/17 23:15 36.4 76 16 96/56 (69) 98 Room Air 11/20/17 23:15 98 Room Air 11/20/17 19:40 36.8 78 20 110/69 (83) 99 Room Air 11/20/17 16:10 100 Room Air 11/20/17 16:10 36.6 75 18 122/75 (91) 100 Room Air 11/20/17 12:15 36.3 81 18 122/61 (81) 100 Room Air Physical Exam General Appearance: WELL-APPEARING, WD/WN, NO APPARENT DISTRESS Respiratory/Chest: chest non-tender, lungs clear, normal breath sounds Cardiovascular: regular rate, rhythm, no edema, no murmur Abdomen: normal bowel sounds, non tender, soft Fundus: Firm, Non-Tender, Relation to Umbilicus (4 cm below) Extremities: normal range of motion, non-tender, normal inspection, no pedal edema, no calf tenderness Laboratory Results Last 24 Hours Test 11/21/17 04:44 Medications Current Inpatient Medications Medications (Trade) Dose Ordered Sig/Kelly Route Start Time Stop Time Status Last Admin Dose Admin Oxytocin (Pitocin IV) 30 units UD PRN IV 11/20/17 09:45 12/20/17 09:44 Benzocaine (Dermoplast Aero Spr) 1 appln PRN PRN EXT 11/20/17 09:45 12/20/17 09:44 Cocaine HCl (Supercream 0.870% Cr) BID PRN EXT 11/20/17 09:45 12/04/17 09:44 Hydrocortisone Acetate (Anusol Hc Supp) 25 mg BID PRN MS 11/20/17 09:45 12/20/17 09:44 Lanolin (Lanolin Oint) PRN PRN EXT 11/20/17 09:45 12/20/17 09:44 Prenat Multivit/ Teletypesetter Operator/Iron/Folic Ac ( Vitamin Tab) 1 tab DAILY PO 11/21/17 08:00 12/21/17 07:59 Ibuprofen (Motrin Tab) 600 mg Q4H PRN PO 11/20/17 09:45 12/20/17 09:44 11/21/17 06:13 600 MG Acetaminophen (Tylenol Tab) 650 mg Q6H PRN PO 11/20/17 09:45 12/20/17 09:44 Oxycodone/ Acetaminophen (Percocet 5-325mg Tab) 1 tab Q4H PRN PO 11/20/17 09:45 12/04/17 09:44 Docusate Sodium (coLACE CAP) 100 mg BID PO 11/20/17 20:00 12/20/17 19:59 11/20/17 20:22 100 MG Assessment and Plan Problem List Medical Problems: (1) Back pain, lumbosacral Status: Acute (2) Dehydration during Status: Acute (3) Nausea and vomiting during Status: Acute (4) Nausea and vomiting during Status: Acute (5) Vaginal bleeding in patient at less than 20 weeks gestation Status: Acute Post- Day#: 1 Continue Routine Care: 22yo F PPD 1 s/p pt doing well clinically Continue routine care Encourage ambulation, breast feeding/first mom education on Pain control with rx prn Resident Physician Supervision Note: I interviewed and examined the patient. Discussed with Dr. Rodrigues and agree with findings and plan as documented in the note. Any exceptions or clarifications are listed here: Doing well. Routine care. Documented By: Caro Delgado Resident Tracking Resident Involvement: Resident Care Provided Care Provided: OB Delivery
[2017-11-21 07:35] LABS: HEMATOCRIT 26.9 % (37-47); HEMOGLOBIN 8.9 g/dL (12.0-16.0)
--- NOTE | 2017-11-21 07:49 | Discharge Instructions ---
Discharge Instructions Date of Service Nov 21, 2017. Admission Reason for Admission: Amniotic Fluid Leaking,[id number] Weeks Gestation Discharge Discharge Diagnosis / Problem: s/p Discharge Goals Goal(s): Routine recovery after delivery Medications Continue Dispensed Medications: supercream, dermaplast, tucks, lansinoh Activity Recommendations Activity Limitations: per Instructions/Follow-up section . Instructions / Follow-Up Instructions / Follow-Up ACTIVITY RECOMMENDATIONS: * Gradual return to full activity over the next 2-3 weeks. * No lifting - nothing heavier than baby over the next 2-3 weeks. * Do not engage in vigorous exercise, sexual activity or sports until cleared by your physician. * Do not drive or operate any motorized equipment until cleared by your physician. * You may shower/bathe daily. MEDICATIONS: For discomfort or pain, you may use Acetaminophen (Tylenol), Ibuprofen (Advil), or Naproxen (Aleve) following the package directions. For constipation you may use Colace following the package directions. BREAST CARE: If you are not breast feeding: * Wear a supportive bra 24 hours a day for one to two weeks. * Avoid stimulating your breasts and nipples as much as possible during the first few weeks after delivery. * When taking a shower, have the warm water hit your back, not breasts. * When your breasts feel full, apply ice packs. Usually three to four times a day helps ease the discomfort. * Take a mild pain medication (Tylenol / Motrin) when you are uncomfortable. If breast feeding: * Use breast milk to lubricate nipples. Lansinoh cream may be used for sore nipples. You do not need to remove cream prior to breast feeding. If using a different brand of cream, check the label for directions regarding removal of cream prior to nursing. * Wear a supportive bra. * If having problems with breasts or breast feeding, call a building consultant or your health care provider. EPISIOTOMY CARE: After delivery, if you have an episiotomy (stitches), the following steps will ease discomfort and aid healing. * For the first 24 hours after delivery, place ice packs next to your episiotomy to help reduce swelling. * After the first 24 hour-period, sitz baths, either portable or in the tub, are suggested. A shower with a shower arm sprayed over the episiotomy may be comforting. * Simona care should be done after each voiding and bowel movement. Squirt warm water from a plastic bottle over the perineum (region of the body between the anus and urinary opening) and pat dry. * Use Dermoplast to ease discomfort. Shake container. [place] directly over the episiotomy. Place a Tucks on a clean sanitary pad next to your episiotomy. SPECIAL CARE INSTRUCTIONS: When you are discharged from the hospital, it is important for you to follow the instructions listed below: * During the first week at home, you should be able to care for yourself and your baby. In addition, the usual light household activities are encouraged. * Limit your activities to the way you feel. Do not try to clean the house or move furniture. Be sensible. * If you actively engage in sports and have done so up until the time of your delivery, you may resume these activities as soon as you feel able. This may take up to one month or even longer. Use good judgment. * Continue to take your vitamins for at least six weeks after the of your baby. * Your diet need not be limited unless you were on a special diet before your delivery. Breast-feeding mothers need around 2500 calories per day and at least 64-80 ounces of fluid per day (8 to 10 glasses). * You should eat foods from the four major food groups. Crash diets or fad diets are to be avoided. Eating lean meats, fresh fruits and vegetables, low-fat dairy products, high fiber foods and a regular exercise program, will help you get back to your pre- weight without putting your health at risk. * Constipation is sometimes a problem after delivery. Take a mild laxative as needed. If breast feeding, Milk of Magnesia is acceptable to use. You may use a suppository or Fleets enema if no episiotomy. * A daily shower or tub bath is suggested. Be sure to thoroughly and gently dry the perineum. * A bloody vaginal discharge will usually continue until around four weeks post . A small amount of bleeding may continue for as long as six weeks. Vaginal discharge changes from the bright red bleeding after delivery to pink then brownish and finally yellowish-pink before becoming white and disappearing. * Bleeding may increase with activity. Your first period may come in 4-8 weeks. If you are breast feeding, your period may be delayed even longer. * [place] (sex) can begin whenever both you and your partner feel comfortable and do not have any form of genital infection. It is recommended that you wait at least six weeks for internal and external healing to occur. If you have questions, please talk to your health care practitioner. A condom should be used to prevent infection and . * Foreplay, gentle intercourse and lubrication is very important the first several times to prevent pain. A water-based lubricant such as K-Y jelly or Astroglide may be used. * If you have RH negative blood and your baby is RH positive, you will receive RHOGAM by injection prior to discharge. The nurse will give you a card to keep with you that has the date and place that you received RHOGAM after delivery. * During your care, you had a Rubella screen done to check for the presence of rubella antibodies in your blood. If your test was negative, you will receive a Rubella vaccine prior to discharge. This vaccine may cause a fever, soreness at the injection site and flu-like symptoms. If these symptoms persist, notify your health care practitioner. is not advised for one month after a Rubella vaccine. * Verbalizes understanding of car seat law as reviewed with patient nursing. * Car Seat hand-out given and reviewed with patient by nursing. * Shaken baby information reviewed with patient by nursing. Call you doctor if: * Heavy bleeding (saturating several pads an hour) or passing clots the size of your fist. * A fever >101 degrees F (38.3 degrees C) on two occasions four hours apart and /or chills. * Unusual pain in the pelvic or vaginal areas. * "Baby Blues" lasting longer than two weeks. If you have any questions or concerns, call your health care practitioner at . FOLLOW UP VISIT: * Please call the office at to schedule a 6 week examination. It is important you keep this appointment. It is important for you to make arrangements for either yearly or twice yearly check-ups thereafter. Current Hospital Diet Patient's current hospital diet: Regular OB Diet Discharge Diet Recommended Diet: Regular OB Diet Pending Studies Studies pending at discharge: no Medical Emergencies . Who to Call and When: Medical Emergencies: If at any time you feel your situation is an emergency, please call 911 immediately. . Non-Emergent Contact Non-Emergency issues call your: Chronometer Repairer . . "Provider Documentation" section prepared by Kayy Rodrigues. .
[2017-11-21 08:00] VITALS: BP 112/73; PULSE 87; TEMP 36.7
[2017-11-21] MEDS: PRENATAL VITAMIN TAB PO SCH (08:40)
[2017-11-21] MEDS: DOCUSATE SODIUM 100 MG CAP PO SCH ×2 (08:40→19:44)
[2017-11-21 12:00] VITALS: BP 115/75; PULSE 94; TEMP 36.9
[2017-11-21 16:05] VITALS: BP 110/70; PULSE 80; TEMP 36.9
[2017-11-21] MEDS: NICOTINE 7 MG/24 HR TDSY TD SCH (17:56)
[2017-11-21 20:25] VITALS: BP 123/70; PULSE 89; TEMP 36.8; O2SAT 98
[2017-11-21 23:45] VITALS: BP 100/62; PULSE 72; TEMP 37.1; O2SAT 98
--- NOTE | 2017-11-22 07:02 | Progress Note ---
Subjective Nov 22, 2017. Subjective conversation w/ patient, physical exam Ambulation: ambulating normally Voiding: no voiding problems Passing Gas: Yes Diet Tolerance: Regular Diet Lochia: Small Feeding Type: Breast Feeding Pain: minimal, well controlled Comment: seen and assessed at bedside; no acute events overnight Review of Systems Constitutional: No fever, No chills Respiratory: No cough, No shortness of breath Cardiac: No chest pain, No edema Abdomen: No nausea, No vomiting no headaches or calf pain Objective Vital Signs Date Time Temp Pulse Resp B/P (MAP) Pulse Ox O2 Delivery O2 Flow Rate FiO2 11/21/17 23:45 98 Room Air 11/21/17 23:45 37.1 72 18 100/62 (75) 98 Room Air 11/21/17 20:25 36.8 89 16 123/70 (87) 98 Room Air 11/21/17 16:05 Room Air 11/21/17 16:05 36.9 80 18 110/70 (83) Room Air 11/21/17 12:00 36.9 94 20 115/75 (88) Room Air 11/21/17 08:20 Room Air 11/21/17 08:00 36.7 87 18 112/73 (86) Room Air Physical Exam General Appearance: WELL-APPEARING, WD/WN, NO APPARENT DISTRESS Respiratory/Chest: chest non-tender, lungs clear, normal breath sounds Cardiovascular: regular rate, rhythm, no edema, no murmur Abdomen: normal bowel sounds, non tender, soft Fundus: Firm, Non-Tender, Relation to Umbilicus (2 cm below) Extremities: normal range of motion, non-tender, normal inspection, no pedal edema, no calf tenderness Laboratory Results Last 24 Hours Test 11/21/17 07:14 Hemoglobin 8.9 g/dL Hematocrit 26.9 % Medications Current Inpatient Medications Medications (Trade) Dose Ordered Sig/Kelly Route Start Time Stop Time Status Last Admin Dose Admin Oxytocin (Pitocin IV) 30 units UD PRN IV 11/20/17 09:45 12/20/17 09:44 Benzocaine (Dermoplast Aero Spr) 1 appln PRN PRN EXT 11/20/17 09:45 12/20/17 09:44 Cocaine HCl (Supercream 0.870% Cr) BID PRN EXT 11/20/17 09:45 12/04/17 09:44 Hydrocortisone Acetate (Anusol Hc Supp) 25 mg BID PRN NM 11/20/17 09:45 12/20/17 09:44 Lanolin (Lanolin Oint) PRN PRN EXT 11/20/17 09:45 12/20/17 09:44 Prenat Multivit/ Warrior/Iron/Folic Ac ( Vitamin Tab) 1 tab DAILY PO 11/21/17 08:00 12/21/17 07:59 11/21/17 08:40 1 TAB Ibuprofen (Motrin Tab) 600 mg Q4H PRN PO 11/20/17 09:45 12/20/17 09:44 11/21/17 20:40 600 MG Acetaminophen (Tylenol Tab) 650 mg Q6H PRN PO 11/20/17 09:45 12/20/17 09:44 Oxycodone/ Acetaminophen (Percocet 5-325mg Tab) 1 tab Q4H PRN PO 11/20/17 09:45 12/04/17 09:44 Docusate Sodium (coLACE CAP) 100 mg BID PO 11/20/17 20:00 12/20/17 19:59 11/21/17 19:44 100 MG Nicotine (Nicoderm Cq 7 Mg Patch) 1 patch QAM TD 11/21/17 15:30 12/21/17 15:29 11/21/17 17:56 1 PATCH Miscellaneous (Remove Nicoderm Patch) 1 ea HS N/A 11/21/17 22:00 12/21/17 21:59 11/21/17 21:59 1 EA Assessment and Plan Problem List Medical Problems: (1) Back pain, lumbosacral Status: Acute (2) Dehydration during Status: Acute (3) Nausea and vomiting during Status: Acute (4) Nausea and vomiting during Status: Acute (5) Vaginal bleeding in patient at less than 20 weeks gestation Status: Acute Post- Day#: 2 Continue Routine Care: 22yoF PPD 2 s/p Continue routine care Encourage ambulation, breast feeding/first mom education on breast feeding Pain control with Rx prn Discharge instructions reviewed Resident Physician Supervision Note: I was present with Dr. Sultana during the history and exam. I discussed the case with the resident and agree with the findings and plan as documented in the note. Any exceptions or clarifications are listed here: [None] Documented By: Kilo Paredes Resident Tracking Resident Involvement: Resident Care Provided Care Provided: OB Delivery
[2017-11-22] MEDS: PRENATAL VITAMIN TAB PO SCH (07:58)
[2017-11-22] MEDS: DOCUSATE SODIUM 100 MG CAP PO SCH (07:58)
[2017-11-22] MEDS: IBUPROFEN 600 MG TAB PO PRN (07:59)
[2017-11-22] MEDS: NICOTINE 7 MG/24 HR TDSY TD SCH (08:00)
[2017-11-22 08:35] VITALS: BP 117/72; PULSE 82; TEMP 36.8
[2017-11-22 10:18] VITALS: BP_DIAS 72; PULSE 82; TEMP 36.8
== END 2017-11-22 10:55 | disposition home or self-care (01) | DRG 775 ==
LOC: C.OPB 01:23 → C.LD 01:23 → C.OPB 02:06 → C.OBG 12:06
PROVIDERS: ADMIT Obstetrics & Gynecology; ATTEND Obstetrics & Gynecology
PROC: 10E0XZZ Delivery of Products of Conception, External Approach (ICD-10-PCS; principal; 2017-11-20)
PROC: 0KQM0ZZ Repair Perineum Muscle, Open Approach (ICD-10-PCS; principal; 2017-11-20)
PROC: 3E033VJ Introduction of Other Hormone into Peripheral Vein, Percutaneous Approach (ICD-10-PCS; 2017-11-20)
DX: O42.02 Full-term premature rupture of membranes, onset of labor within 24 hours of rupture (principal); O70.1 Second degree perineal laceration during delivery; Z3A.38 38 weeks gestation of pregnancy; Z37.0 Single live birth